=== PATIENT | female | born 1995 | race Caucasian/White ===

== ENCOUNTER 2019-03-19 20:03 | Emergency (ER) | payer OTHER ==
[2019-03-19 20:09] VITALS: BP 129/82; PULSE 98; RESP 18; TEMP 98.3
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
[2019-03-19 21:14] LABS: ALT 20 U/L (9-52); AST 25 U/L (14-36); African American GFR (CKD) >90 (>60 ml/min/1.73 sqM); Albumin 4.9 g/dL (3.5-5.0); Alkaline Phosphatase 76 U/L (38-126); Anion Gap 12 mmol/L; Appearance,Urine Clear (Clear); Bacteria,Urine Occasional /hpf; Basophils # (A) 0.1 k/uL (0-0.2); Basophils % (A) 1 %; Bilirubin,Urine Negative (Negative); Blood Urea Nitrogen 15 mg/dL (7-17); Blood,Urine Moderate (Negative); Calcium 9.8 mg/dL (8.4-10.2); Carbon Dioxide 26 mmol/L (22-30); Chloride 104 mmol/L (98-107); Color,Urine Yellow; Eosinophils # (A) 0.5 k/uL (0-0.7); Eosinophils % (A) 2 %; Glucose 77 mg/dL (74-99); Glucose,Urine (UA) Negative (Negative); HCT 48.5 % (34.0-46.0); HGB 16.4 gm/dL (11.4-16.0); Ketones,Urine Negative (Negative); Leukocyte Esterase,Urine Trace (Negative); Lymphocytes # (A) 3.5 k/uL (1.0-4.8); Lymphocytes % (A) 18 %; MCH 32.4 pg (25.0-35.0); MCHC 33.9 g/dL (31.0-37.0); MCV 95.7 fL (80.0-100.0); Mean Platelet Volume 5.9; Monocytes # (A) 0.5 k/uL (0-1.0); Monocytes % (A) 3 %; Mucus,Urine Many /hpf; Neutrophils % (A) 76 %; Nitrite,Urine Negative (Negative); Non-African American GFR(CKD) >90 (>60 ml/min/1.73 sqM); Platelet Count 368 k/uL (150-450); Potassium 3.7 mmol/L (3.5-5.1); Protein,Urine 1+ (Negative); RBC 5.07 m/uL (3.80-5.40); RBC,Urine 167 /hpf (0-5); RDW 12.2 % (11.5-15.5); Sodium 142 mmol/L (137-145); Specific Gravity,Urine 1.027 (1.001-1.035); Squamous Epithelial Cell,Urine 2 /hpf (0-4); Total Bilirubin 0.6 mg/dL (0.2-1.3); Total Protein 8.2 g/dL (6.3-8.2); WBC 19.7 k/uL (3.8-10.6); WBC,Urine 9 /hpf (0-5)
[2019-03-19] MEDS ORDERED: MORPHINE SULFATE 2 MG/ML SYRINGE IVP STA (21:42)
[2019-03-19] MEDS ORDERED: SODIUM CHLORIDE 0.9% 500 ML 500 ML IV STA (22:01)
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
== END 2019-03-19 22:36 | disposition home or self-care (01) ==
LOC: EC 20:03
DX: R07.89 Other chest pain (principal); N28.1 Cyst of kidney, acquired; V47.5XXA Car driver injured in collision with fixed or stationary object in traffic accident, initial encounter; Y93.89 Activity, other specified; Y92.410 Unspecified street and highway as the place of occurrence of the external cause
CPT/HCPCS: 36415; 80053; 85025; 81001; 81025; 71260; 74177; 99284; 96374; J2270; Q9967

== ENCOUNTER → 2021-08-25 | Outpatient (CLI) | payer BC ==
--- NOTE | 2021-08-25 10:48 | US ---
EXAMINATION TYPE: US pelvic complete DATE OF EXAM: 08/25/2021 COMPARISON: CT 2019 CLINICAL HISTORY: N92.6 IRREGULAR MENSTRUAL CYCLE. Irregular menses TECHNIQUE: Transabdominal (TA). Transabdominal sonographic images of the pelvis were acquired. EXAM MEASUREMENTS: Uterus: 7.2 x 2.6 x 4.6 cm Endometrial Stripe: .9 cm Right Ovary: 3.6 x 1.8 x 1.9 cm Left Ovary: 2.8 x 2.0 x 2.6 cm 1. Uterus: Anteverted wnl 2. Endometrium: wnl 3. Right Ovary: wnl 4. Left Ovary: wnl 5. Bilateral Adnexa: wnl 6. Posterior cul-de-sac: wnl Heterogeneous anteverted uterus. Endometrial stripe is 9 mm which is within normal limits. No free fl uid. Ovaries symmetric and normal in size. No adnexal masses. IMPRESSION: Unremarkable transabdominal pelvic ultrasound.
[2021-08-25 15:46] LABS: Estradiol 82.7 pg/mL
[2021-08-25 16:09] LABS: Basophils # (A) 0.08 X 10*3/uL (0.00-0.10); Basophils % (A) 0.7 %; Eosinophils # (A) 0.11 X 10*3/uL (0.04-0.35); Eosinophils % (A) 0.9 %; HCT 49.4 % (37.2-46.3); HGB 15.7 g/dL (12.0-15.0); Immature Grans, Automated 0.5 %; Lymphocytes % (A) 17.2 %; MCH 31.3 pg (27.0-32.0); MCHC 31.8 g/dL (32.0-37.0); MCV 98.6 fL (80.0-97.0); Mean Platelet Volume 10.2 fL (9.5-12.2); Monocytes # (A) 0.53 X 10*3/uL (0.20-1.00); Monocytes % (A) 4.3 %; NRBC Per 100 WBC 0 /100 WBCS (0.0-0.0); Neutrophils # (A) 9.31 X 10*3/uL (1.80-7.70); Neutrophils % (A) 76.4 %; Platelet Count 388 X 10*3/uL (140-440); RBC 5.01 X 10*6/uL (4.10-5.20); RDW 12.2 % (11.5-14.5); WBC 12.19 X 10*3/uL (4.50-10.00)
[2021-08-25 16:55] LABS: ALT 21 U/L (8-44); AST 22 U/L (13-35); African American GFR (CKD) 112.9 (60.0-200.0); Albumin 5.2 g/dL (3.8-4.9); Albumin/Globulin Ratio 1.98 (1.60-3.17); Alkaline Phosphatase 80 U/L (41-126); BUN/Creat Ratio 13.35 Ratio (12.00-20.00); Blood Urea Nitrogen 11.2 mg/dL (9.0-27.0); Carbon Dioxide 21.4 mmol/L (20.0-27.5); Chloride 103 mmol/L (96-109); Globulin 2.6 g/dL (1.6-3.3); Glucose 83 mg/dL (70-110); LDL Cholesterol,Calculated 130.1 mg/dL (0.0-131.0); Luteinizing Hormone 9.4 mIU/mL; Non-African American GFR(CKD) 97.4 (60.0-200.0); Potassium 4.4 mmol/L (3.5-5.5); Sodium 141 mmol/L (135-145); Total Protein 7.9 g/dL (6.2-8.2)
[2021-08-25 16:56] LABS: Follicle Stimulating Hormone 4.8 mIU/mL
== END | disposition home or self-care (01) ==
LOC: RADUSWWP 09:27
PROVIDERS: ATTEND Pediatrics
DX: Z00.01 Encounter for general adult medical examination with abnormal findings (principal); Z13.220 Encounter for screening for lipoid disorders; N92.6 Irregular menstruation, unspecified
CPT/HCPCS: 76856; 80053; 80061; 82670; 83001; 83002; 84146; 84443; 85025

== ENCOUNTER → 2023-07-21 | Outpatient (CLI) | payer BC ==
[2023-07-21 13:39] LABS: Basophils # (A) 0.08 X 10*3/uL (0.00-0.10); Basophils % (A) 0.7 %; Eosinophils # (A) 0.15 X 10*3/uL (0.04-0.35); Eosinophils % (A) 1.2 %; HCT 50.3 % (37.2-46.3); HGB 16.3 g/dL (12.0-15.0); Lymphocytes # (A) 2.45 X 10*3/uL (0.90-5.00); Lymphocytes % (A) 20.2 %; MCH 30.7 pg (27.0-32.0); MCHC 32.4 g/dL (32.0-37.0); MCV 94.7 FL (80.0-97.0); Mean Platelet Volume 9.7 FL (9.5-12.2); Monocytes # (A) 0.47 X 10*3/uL (0.20-1.00); Monocytes % (A) 3.9 %; NRBC Per 100 WBC 0 X 10*3/uL (0.00-0.01); Neutrophils # (A) 8.96 X 10*3/uL (1.80-7.70); Neutrophils % (A) 73.7 %; Platelet Count 361 X 10*3/uL (140-440); RBC 5.31 X 10*6/uL (4.10-5.20); RDW 11.9 % (11.5-14.5); WBC 12.15 X 10*3/uL (4.50-10.00)
[2023-07-21 14:15] LABS: ALT 32 U/L (8-44); AST 24 U/L (13-35); Albumin 4.8 g/dL (3.8-4.9); Albumin/Globulin Ratio 1.78 Ratio (1.60-3.17); Alkaline Phosphatase 98 U/L (41-126); BUN/Creat Ratio 18.75 Ratio (12.00-20.00); Calcium 10.2 mg/dL (8.7-10.3); Carbon Dioxide 24.7 mmol/L (21.6-31.8); Chloride 105 mmol/L (96-109); Chol/HDL Ratio 4.39 Ratio; Globulin 2.7 g/dL (1.6-3.3); Glucose 90 mg/dL (70-110); HCG,Quantitative Serum <3.0 mIU/mL (0.0-6.0); LDL Cholesterol,Calculated 162.3 mg/dL (0.0-131.0); Potassium 4.8 mmol/L (3.5-5.5); Sodium 142 mmol/L (135-145); Total Bilirubin 0.4 mg/dL (0.3-1.2); Total Protein 7.5 g/dL (6.2-8.2)
== END | disposition home or self-care (01) ==
LOC: LABWHC1 09:05
PROVIDERS: ATTEND Pediatrics
DX: Z00.01 Encounter for general adult medical examination with abnormal findings (principal); Z13.220 Encounter for screening for lipoid disorders; N91.2 Amenorrhea, unspecified; F41.9 Anxiety disorder, unspecified
CPT/HCPCS: 36415; 80053; 80061; 84443; 84702; 85025

== ENCOUNTER → 2023-09-26 | Outpatient (CLI) | payer BC ==
--- NOTE | 2023-09-30 16:11 | US ---
EXAMINATION TYPE: US pelvic complete DATE OF EXAM: 09/26/2023 COMPARISON: US Pelvis 2021, CT 2018 CLINICAL INDICATION: Female, 28 years old with history of N92.6 IRREGULAR MENSTRUATION, UNSPECIFIED; Irregular menstrual cycle. Patient states her last period was in April 2023. G0. TECHNIQUE: Transabdominal (TA). Transabdominal sonographic images of the pelvis were acquired. Date of LMP: 05/11/2024 EXAM MEASUREMENTS: Uterus: 8.2 x 3.9 x 2.8 cm Endometrial Stripe: 0.46 cm Right Ovary: 4.1 x 2.3 x 1.7 cm Left Ovary: 3.9 x 1.7 x 1.8 cm 1. Uterus: Anteverted wnl 2. Endometrium: Measures 0.46 cm 3. Right Ovary: Appears wnl 4. Left Ovary: Appears wnl 5. Bilateral Adnexa: Appear wnl 6. Posterior cul-de-sac: Appears wnl Anteverted uterus without discrete mass identified. Endometrium is within normal limits. Both ovaries appear unremarkable. Bilateral adnexa appear within normal limits. No free fluid. IMPRESSION: Unremarkable transabdominal pelvic ultrasound.
== END | disposition home or self-care (01) ==
LOC: RADUSWWP 13:55
PROVIDERS: ATTEND Pediatrics
DX: N92.6 Irregular menstruation, unspecified (principal)
CPT/HCPCS: 76856